=== PATIENT | male | born 1935 | race African-American/Black ===

== ENCOUNTER 2017-09-10 18:53 | Inpatient (IN) | payer MEDICARE, MEDICAID ==
[~2017-09-10] VITALS: Ht 172.7 cm; Wt 56.7 kg
[~2017-09-10 18:53] MED LIST: AMLO10TA80 PO; ASPI-1160 PO; ATOR20TA65 PO; BACL-141 PO; CLOP75TA33 PO; DULO60CA44 PO; GABA-531 PO; LISI10TA5 PO; METO25TA6 PO; MULT-1146 PO; SENN-22 PO; TAMS-11 PO; WARF5TAB76 PO
[2017-09-10 20:00] VITALS: BP 119/80
[2017-09-10] MEDS ORDERED: ZOLPIDEM TARTRATE 5MG TABLET PO PRN (20:00)
[2017-09-10] MEDS ORDERED: HYDROCODONE/ACETAMINOPHEN 5/325MG TABLET PO PRN (20:00)
[2017-09-10 20:30] VITALS: BP 119/80
[2017-09-10] MEDS: SODIUM CHLORIDE 0.45% 1,000 ML IV SCH (20:30)
[2017-09-11] VITALS: BP 137/82
[2017-09-11 04:00] VITALS: BP 140/91
[2017-09-11 05:59] LABS: PARTIAL THROMBOPLASTIN TIME 27.4 sec (23.4-31.0); PROTHROMBIN TIME 10.4 sec (9.4-11.6)
[2017-09-11] MEDS ORDERED: SENNOSIDES 8.6MG TABLET PO PRN (06:15)
[2017-09-11 06:19] LABS: BASOPHILS % 1.3 % (0.0-2.0); EOSINOPHILS % 5.7 % (0.0-5.0); HEMATOCRIT. 45.9 % (42.0-52.0); HEMOGLOBIN. 15.3 g/dL (14.0-18.0); LYMPHOCYTES % 26.3 % (20.0-50.0); MEAN CORPUSCULAR HEMOGLOBIN 27.6 pg (28.0-32.0); MEAN CORPUSCULAR VOLUME 82.8 fL (80.0-94.0); MEAN PLATELET VOLUME 8.8 fl (7.4-10.4); MONOCYTES % 9.7 % (2.0-8.0); PLATELET 222 x1000/uL (130-400); RED BLOOD CELL COUNT 5.54 mill/uL (4.7-6.1)
[2017-09-11] MEDS: GABAPENTIN 300MG CAPSULE PO SCH ×3 (06:58→21:07)
[2017-09-11] MEDS: BACLOFEN 10MG TABLET PO SCH ×3 (06:58→21:07)
[2017-09-11 08:00] VITALS: BP 139/86
[2017-09-11 08:25] LABS: CARBON DIOXIDE 30 mEq/L (21-32); CHLORIDE 103 mEq/L (98-107)
[2017-09-11] MEDS: AMLODIPINE 10MG TABLET PO SCH (10:09)
[2017-09-11] MEDS: METOPROLOL TARTRATE 25MG TABLET PO SCH ×2 (10:09→21:07)
[2017-09-11] MEDS: LISINOPRIL 10MG TABLET PO SCH (10:09)
[2017-09-11] MEDS: DULOXETINE HCL 60MG DR CAPSULE PO SCH (10:09)
[2017-09-11 12:00] VITALS: BP 139/83
[2017-09-11 16:00] VITALS: BP 130/84
[2017-09-11 20:02] VITALS: BP 127/79
[2017-09-11] MEDS: ATORVASTATIN CALCIUM 20MG TABLET PO SCH (21:07)
[2017-09-12 00:13] VITALS: BP 118/66
[2017-09-12] MEDS: SODIUM CHLORIDE 0.45% 1,000 ML IV SCH ×2 (00:20→13:07)
[2017-09-12 04:00] VITALS: BP 138/88
[2017-09-12] MEDS: BACLOFEN 10MG TABLET PO SCH ×3 (06:24→21:06)
[2017-09-12] MEDS: GABAPENTIN 300MG CAPSULE PO SCH ×3 (06:24→21:06)
[2017-09-12 08:00] VITALS: BP 141/94
[2017-09-12 08:58] LABS: BASOPHILS % 1.1 % (0.0-2.0); EOSINOPHILS % 5.2 % (0.0-5.0); HEMATOCRIT. 46.5 % (42.0-52.0); HEMOGLOBIN. 15.4 g/dL (14.0-18.0); MEAN CORPUSCULAR HEMOGLOBIN 27.4 pg (28.0-32.0); MEAN CORPUSCULAR VOLUME 82.4 fL (80.0-94.0); MEAN PLATELET VOLUME 8.6 fl (7.4-10.4); NEUTROPHILS % 59.7 % (40.0-76.0); PLATELET 207 x1000/uL (130-400); RED BLOOD CELL COUNT 5.65 mill/uL (4.7-6.1); RED CELL DISTRIBUTION WIDTH 14.4 % (11.6-14.6)
[2017-09-12] MEDS ORDERED: MAGNESIUM 2 G PREMIX 50 ML IV SCH (09:00)
[2017-09-12] MEDS: LISINOPRIL 10MG TABLET PO SCH (09:19)
[2017-09-12] MEDS: AMLODIPINE 10MG TABLET PO SCH (09:19)
[2017-09-12] MEDS: DULOXETINE HCL 60MG DR CAPSULE PO SCH (09:19)
[2017-09-12] MEDS: METOPROLOL TARTRATE 25MG TABLET PO SCH ×2 (09:20→20:58)
[2017-09-12 09:35] LABS: CARBON DIOXIDE 26 mEq/L (21-32); CHLORIDE 103 mEq/L (98-107)
[2017-09-12 11:17] LABS: T4 FREE 1.19 ng/dL (0.76-1.46)
[2017-09-12 12:00] VITALS: BP 131/81
[2017-09-12 15:05] LABS: CREATINE KINASE 126 IU/L (39-308); CREATINE KINASE MB FRACTION 3.2 ng/mL (0.5-3.6); TROPONIN I < 0.02 ng/mL (0.00-0.04)
[2017-09-12 16:05] VITALS: BP 108/70
[2017-09-12 20:00] VITALS: BP 105/73
[2017-09-12] MEDS: ATORVASTATIN CALCIUM 20MG TABLET PO SCH (21:06)
[2017-09-13] VITALS (7 sets, daily range): BP systolic 101–154; BP diastolic 71–100
[2017-09-13 00:09] LABS: CREATINE KINASE 136 IU/L (39-308); CREATINE KINASE MB FRACTION 3.9 ng/mL (0.5-3.6); TROPONIN I < 0.02 ng/mL (0.00-0.04)
[2017-09-13] MEDS: GABAPENTIN 300MG CAPSULE PO SCH ×3 (05:09→21:19)
[2017-09-13] MEDS: BACLOFEN 10MG TABLET PO SCH ×3 (05:09→21:19)
[2017-09-13] MEDS: SODIUM CHLORIDE 0.45% 1,000 ML IV SCH ×2 (05:09→16:51)
[2017-09-13 08:13] LABS: CREATINE KINASE 108 IU/L (39-308); TROPONIN I < 0.02 ng/mL (0.00-0.04)
[2017-09-13] MEDS: DULOXETINE HCL 60MG DR CAPSULE PO SCH (10:01)
[2017-09-13] MEDS: AMLODIPINE 10MG TABLET PO SCH (10:01)
[2017-09-13] MEDS: METOPROLOL TARTRATE 25MG TABLET PO SCH ×2 (10:01→21:19)
[2017-09-13] MEDS: LISINOPRIL 10MG TABLET PO SCH (10:01)
[2017-09-13] MEDS: ENOXAPARIN 40MG/0.4ML SYR SUBCUT SCH (10:02)
[2017-09-13] MEDS: ATORVASTATIN CALCIUM 20MG TABLET PO SCH (21:19)
[2017-09-14] VITALS: BP 120/75
[2017-09-14 04:00] VITALS: BP 143/71
[2017-09-14] MEDS: BACLOFEN 10MG TABLET PO SCH (05:15)
[2017-09-14] MEDS: GABAPENTIN 300MG CAPSULE PO SCH (05:15)
[2017-09-14 07:37] VITALS: BP 103/73
[2017-09-14] MEDS: METOPROLOL TARTRATE 25MG TABLET PO SCH (08:32)
[2017-09-14] MEDS: AMLODIPINE 10MG TABLET PO SCH (08:33)
[2017-09-14] MEDS: LISINOPRIL 10MG TABLET PO SCH (08:33)
[2017-09-14] MEDS: ENOXAPARIN 40MG/0.4ML SYR SUBCUT SCH (08:54)
[2017-09-14] MEDS: DULOXETINE HCL 60MG DR CAPSULE PO SCH (08:54)
[2017-09-14 11:36] VITALS: BP 98/68
[2017-09-14 12:17] VITALS: BP 98/68
== END 2017-09-14 13:25 | DRG 551 ==
LOC: 8WST 18:53
PROVIDERS: ADMIT Internal Medicine; ATTEND Internal Medicine
DX: M48.00 Spinal stenosis, site unspecified (principal); E43 Unspecified severe protein-calorie malnutrition; Z68.1 Body mass index [BMI] 19.9 or less, adult; I48.91 Unspecified atrial fibrillation; I10 Essential (primary) hypertension; E78.5 Hyperlipidemia, unspecified; I25.10 Atherosclerotic heart disease of native coronary artery without angina pectoris; J45.909 Unspecified asthma, uncomplicated; W18.39XA Other fall on same level, initial encounter; M62.838 Other muscle spasm; I49.3 Ventricular premature depolarization; N40.0 Benign prostatic hyperplasia without lower urinary tract symptoms; Z79.01 Long term (current) use of anticoagulants; Z79.899 Other long term (current) drug therapy; Z86.73 Personal history of transient ischemic attack (TIA), and cerebral infarction without residual deficits; Y93.89 Activity, other specified; Y92.89 Other specified places as the place of occurrence of the external cause; Y99.8 Other external cause status
CPT/HCPCS: 36415; 80048; 80061; 82270; 82550; 82553; 83036; 83735; 83880; 84439; 84443; 84484; 85025; 85379; 85610; 85730; 93005; 93306; 93970; 97116; 97162; 97530; J1650; J3475

== ENCOUNTER 2019-08-25 16:42 | Inpatient (IN) | payer MEDICARE, MEDICAID ==
[~2019-08-25] VITALS: Ht 172.7 cm; Wt 61.2 kg
[~2019-08-25 16:42] MED LIST changes: +DOCU-138 PO; +FAMO20TA8 PO
[2019-08-25 16:52] VITALS: BP 143/86
[2019-08-25 17:00] VITALS: BP 143/86
[2019-08-25 17:01] VITALS: BP 143/86
[2019-08-25] MEDS ORDERED: FAMOTIDINE 20MG TABLET PO ONE (17:30)
[2019-08-25] MEDS ORDERED: ACETAMINOPHEN 325MG TABLET PO PRN (17:30)
[2019-08-25] MEDS ORDERED: ONDANSETRON HCL 4MG/2ML INJ IV PRN (17:30)
[2019-08-25] MEDS ORDERED: BACLOFEN 10MG TABLET PO PRN (17:30)
[2019-08-25 20:00] VITALS: BP 146/96
[2019-08-25 20:35] LABS: BASOPHILS % 0.9 % (0.0-2.0); HEMATOCRIT. 42.8 % (42.0-52.0); HEMOGLOBIN. 13.9 g/dL (14.0-18.0); LYMPHOCYTES % 28.9 % (20.0-50.0); MEAN CORPUSCULAR HEMOGLOBIN 26.6 pg (28.0-32.0); MEAN CORPUSCULAR VOLUME 81.7 fL (80.0-94.0); MEAN PLATELET VOLUME 8.6 fl (7.4-10.4); MONOCYTES % 7.5 % (2.0-8.0); NEUTROPHILS % 56.7 % (40.0-76.0); PLATELET 184 x1000/uL (130-400); RED BLOOD CELL COUNT 5.24 mill/uL (4.7-6.1); RED CELL DISTRIBUTION WIDTH 15.8 % (11.6-14.6)
[2019-08-25] MEDS: METOPROLOL TARTRATE 25MG TABLET PO SCH (20:48)
[2019-08-25] MEDS: AMLODIPINE 10MG TABLET PO SCH (20:48)
[2019-08-25 20:50] LABS: CHLORIDE 104 mEq/L (98-107)
[2019-08-25 20:57] LABS: PHOSPHORUS 3.5 mg/dL (2.5-4.9)
[2019-08-25 20:58] LABS: HDL CHOLESTEROL 51 mg/dL (40-59); LDL CHOLESTEROL 54 mg/dL (5-100)
[2019-08-25 21:05] LABS: T4 FREE 1.16 ng/dL (0.76-1.46)
[2019-08-25 21:06] LABS: TOTAL IRON BINDING CAPACITY 245 ug/dL (250-450)
[2019-08-25] MEDS: GABAPENTIN 300MG CAPSULE PO SCH (21:33)
[2019-08-26] VITALS: BP 124/82
[2019-08-26 04:00] VITALS: BP 129/77
[2019-08-26] MEDS: GABAPENTIN 300MG CAPSULE PO SCH ×3 (05:30→21:17)
[2019-08-26] MEDS: FAMOTIDINE 20MG TABLET PO SCH ×2 (05:33→21:17)
[2019-08-26] MEDS: DOCUSATE SODIUM 250MG CAPSULE PO SCH (08:33)
[2019-08-26] MEDS: ASPIRIN 81MG TABLET PO SCH (08:33)
[2019-08-26] MEDS: METOPROLOL TARTRATE 25MG TABLET PO SCH ×2 (08:33→21:00)
[2019-08-26] MEDS: AMLODIPINE 10MG TABLET PO SCH (08:34)
[2019-08-26] MEDS: TAMSULOSIN HCL 0.4MG SR CAPSULE PO SCH (08:34)
[2019-08-26] MEDS: CLOPIDOGREL 75MG TABLET PO SCH (08:34)
[2019-08-26] MEDS: DULOXETINE HCL 60MG DR CAPSULE PO SCH (08:35)
[2019-08-26 11:48] LABS: CLARITY URINE CLEAR (CLEAR); COLOR URINE YELLOW (YELLOW); KETONES URINE NEGATIVE (NEGATIVE); LEUKOCYTE ESTERASE URINE NEGATIVE (NEGATIVE); NITRITE URINE NEGATIVE (NEGATIVE); OCCULT BLOOD URINE NEGATIVE (NEGATIVE); PROTEIN URINE NEGATIVE (NEGATIVE); SPECIFIC GRAVITY URINE 1.004 (1.005-1.030); UROBILINOGEN URINE 0.2 E.U./dL (0.2-1.0)
[2019-08-26 20:00] VITALS: BP 133/87
[2019-08-27] VITALS: BP 121/85
[2019-08-27 04:00] VITALS: BP 147/94
[2019-08-27] MEDS: GABAPENTIN 300MG CAPSULE PO SCH ×3 (06:30→21:12)
[2019-08-27 08:00] VITALS: BP 145/93
[2019-08-27] MEDS: CLOPIDOGREL 75MG TABLET PO SCH (09:13)
[2019-08-27] MEDS: ASPIRIN 81MG TABLET PO SCH (09:13)
[2019-08-27] MEDS: DULOXETINE HCL 60MG DR CAPSULE PO SCH (09:13)
[2019-08-27] MEDS: METOPROLOL TARTRATE 25MG TABLET PO SCH ×2 (09:13→21:12)
[2019-08-27] MEDS: TAMSULOSIN HCL 0.4MG SR CAPSULE PO SCH (09:14)
[2019-08-27] MEDS: AMLODIPINE 10MG TABLET PO SCH (09:14)
[2019-08-27] MEDS: DOCUSATE SODIUM 250MG CAPSULE PO SCH (09:43)
[2019-08-27 12:00] VITALS: BP 108/70
[2019-08-27 16:00] VITALS: BP 121/85
[2019-08-27] MEDS: FAMOTIDINE 20MG TABLET PO SCH (21:13)
[2019-08-28] MEDS: GABAPENTIN 300MG CAPSULE PO SCH ×3 (06:14→21:28)
[2019-08-28 08:00] VITALS: BP 141/90
[2019-08-28] MEDS: DULOXETINE HCL 60MG DR CAPSULE PO SCH (09:26)
[2019-08-28] MEDS: CLOPIDOGREL 75MG TABLET PO SCH (09:26)
[2019-08-28] MEDS: TAMSULOSIN HCL 0.4MG SR CAPSULE PO SCH (09:27)
[2019-08-28] MEDS: AMLODIPINE 10MG TABLET PO SCH (09:27)
[2019-08-28] MEDS: ASPIRIN 81MG TABLET PO SCH (09:27)
[2019-08-28] MEDS: METOPROLOL TARTRATE 25MG TABLET PO SCH ×2 (09:27→20:24)
[2019-08-28] MEDS: DOCUSATE SODIUM 250MG CAPSULE PO SCH (09:27)
[2019-08-28 12:00] VITALS: BP 126/78
[2019-08-28 16:00] VITALS: BP 109/82
[2019-08-28 20:00] VITALS: BP 120/77
[2019-08-28] MEDS: FAMOTIDINE 20MG TABLET PO SCH (20:23)
[2019-08-29] VITALS: BP 117/76
[2019-08-29 04:00] VITALS: BP 127/71
[2019-08-29 05:46] LABS: CHLORIDE 104 mEq/L (98-107)
[2019-08-29 05:50] LABS: BASOPHILS % 0.7 % (0.0-2.0); EOSINOPHILS % 4.7 % (0.0-5.0); HEMATOCRIT. 43.9 % (42.0-52.0); HEMOGLOBIN. 14.5 g/dL (14.0-18.0); LYMPHOCYTES % 29.9 % (20.0-50.0); MEAN CORPUSCULAR HEMOGLOBIN 26.6 pg (28.0-32.0); MEAN CORPUSCULAR VOLUME 80.8 fL (80.0-94.0); MEAN PLATELET VOLUME 8.6 fl (7.4-10.4); MONOCYTES % 8.7 % (2.0-8.0); PLATELET 205 x1000/uL (130-400); RED BLOOD CELL COUNT 5.44 mill/uL (4.7-6.1); RED CELL DISTRIBUTION WIDTH 15.5 % (11.6-14.6)
[2019-08-29 06:10] LABS: PHOSPHORUS 3.2 mg/dL (2.5-4.9)
[2019-08-29] MEDS: GABAPENTIN 300MG CAPSULE PO SCH (06:43)
[2019-08-29 08:00] VITALS: BP 137/98
[2019-08-29] MEDS: TAMSULOSIN HCL 0.4MG SR CAPSULE PO SCH (08:57)
[2019-08-29] MEDS: CLOPIDOGREL 75MG TABLET PO SCH (08:57)
[2019-08-29] MEDS: ASPIRIN 81MG TABLET PO SCH (08:57)
[2019-08-29] MEDS: DOCUSATE SODIUM 250MG CAPSULE PO SCH (08:57)
[2019-08-29] MEDS: AMLODIPINE 10MG TABLET PO SCH (08:58)
[2019-08-29] MEDS: METOPROLOL TARTRATE 25MG TABLET PO SCH (08:58)
[2019-08-29] MEDS: DULOXETINE HCL 60MG DR CAPSULE PO SCH (08:58)
[2019-08-29] MEDS ORDERED: IOHEXOL-300 100 ML BOTTLE ONE (11:49)
[2019-08-29 12:00] VITALS: BP 129/76
[2019-08-29 14:43] VITALS: BP 129/76
== END 2019-08-29 15:46 | DRG 74 ==
LOC: 6EST 16:42
PROVIDERS: ADMIT Internal Medicine; ATTEND Internal Medicine
DX: G62.9 Polyneuropathy, unspecified (principal); R26.9 Unspecified abnormalities of gait and mobility; D63.8 Anemia in other chronic diseases classified elsewhere; R00.1 Bradycardia, unspecified; E78.5 Hyperlipidemia, unspecified; I10 Essential (primary) hypertension; N40.0 Benign prostatic hyperplasia without lower urinary tract symptoms; Z87.440 Personal history of urinary (tract) infections; Z87.81 Personal history of (healed) traumatic fracture
CPT/HCPCS: 36415; 71045; 74018; 74178; 76857; 80061; 80069; 80076; 81003; 82248; 83036; 83540; 83550; 83735; 84100; 84153; 84436; 84439; 84443; 84481; 84550; 85044; 85651; 93005; 93880; 97116; 97162; 97166; 97530; Q9967; G0103